=== PATIENT | female | born 1970 | race Caucasian/White ===

== ENCOUNTER 2019-12-04 07:59 | Emergency (ER) | payer MEDICAID ==
[~2019-12-04] VITALS: Ht 170.2 cm; Wt 75.3 kg
[2019-12-04 08:01] VITALS: BP 165/88
--- NOTE | 2019-12-04 08:41 | NUR ---
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
[2019-12-04] MEDS ORDERED: LIDOCAINE-MPF 1%, 5ML ONE (08:55)
--- NOTE | 2019-12-04 09:43 | NUR ---
MED STUDENT IN AT THIS TIME FOR I/D
[2019-12-04] MEDS ORDERED: LIDOCAINE-MPF 1%, 5ML INFIL ONE (10:00)
== END 2019-12-04 10:20 | disposition home or self-care (01) ==
LOC: ED 08:48
DX: L02.11 Cutaneous abscess of neck (principal)
CPT/HCPCS: 10060